=== PATIENT | female | born 1935 | race Caucasian/White ===

== ENCOUNTER 2017-02-10 03:48 | Emergency (ER) | payer OTHER, MEDICARE ==
[~2017-02-10] VITALS: Ht 152.4 cm; Wt 63.2 kg
[~2017-02-10 03:48] MED LIST: VICODIN 5-3001 EACH PO
[2017-02-10 04:24] LABS: EOSINOPHIL (%) 2.6 % (0-5); EOSINOPHIL COUNT 0.2 K/uL (0-0.3); HEMATOCRIT 39.8 % (36.0-46.0); IMMATURE GRANULOCYTE (%) 0.3 % (0.0-0.7); INSTRUMENT ABS NEUTROPHIL CT 4.9 K/uL; LYMPHOCYTE COUNT 1.5 K/uL (1.0-2.8); MCH 27.3 PG (29.0-34.0); MCHC 32.4 G/DL (30.0-36.0); MCV 84.1 FL (83-99); MEAN PLAT.VOLUME 10.1 uM^3 (9.5-12.4); MONOCYTE (%) 8.4 % (3-12); MONOCYTE COUNT 0.6 K/uL (0-0.8); NEUTROPHIL (%) 67.9 % (45-76); NEUTROPHIL COUNT 4.9 K/uL (1.8-6.4); PLATELET COUNT 249 K/uL (156-360); RBC DIS.WIDTH-CV 13.5 % (11.8-14.6); RBC DIS.WIDTH-SD 42.1 % (39-53); RED BLOOD COUNT 4.73 M/uL (3.80-5.20); WHITE BLOOD COUNT 7.2 K/uL (4.1-10.2)
[2017-02-10 04:31] LABS: ADD MIUA? NO; BILIRUBIN NEGATIVE; BLOOD NEGATIVE; COLOR STRAW ((YELLOW)); GLUCOSE (STRIP) NEGATIVE; KETONES NEGATIVE; LEUKOCYTES NEGATIVE; NITRITE NEGATIVE; PROTEIN (STRIP) NEGATIVE; SPECIFIC GRAVITY 1.009 (1.000-1.030); UCUL ADDED? NO; UROBILINOGEN 0.2 MG/DL (0.2-1.0)
[2017-02-10 04:38] LABS: CHLORIDE 110 mEq/L (99-109); POTASSIUM 4.1 mEq/L (3.7-5.4); SODIUM 145 mEq/L (136-147)
[2017-02-10 04:41] LABS: GLUCOSE 108 mg/dL (70-99)
[2017-02-10 04:42] LABS: ANION GAP 10 MEQ/L (2-14)
[2017-02-10 04:43] LABS: TOTAL BILIRUBIN 0.4 mg/dL (0.0-1.0)
[2017-02-10 04:44] LABS: ALKALINE PHOSPHATASE 58 IU/L (3-129)
[2017-02-10 04:45] LABS: GFR ESTIMATE (CALCULATED) > 59 mL/min/
[2017-02-10 04:46] LABS: DIRECT BILIRUBIN 0.2 mg/dL (0.0-0.3); UREA NITROGEN (BUN) 10 mg/dL (9-23)
[2017-02-10 04:48] LABS: LIPASE 7 U/L (1.0-51.0); TROP-I INTERPRETATION NEGATIVE; TROPONIN-I < 0.01 ng/mL (0.0-0.30)
[2017-02-10] MEDS ORDERED: VICODIN 5-3001 EACH PO (07:14)
[2017-02-10 07:36] VITALS: BP 157/90
== END 2017-02-10 07:44 | disposition home or self-care (01) ==
LOC: EME 03:48
PROVIDERS: Emergency Medicine
DX: N13.30 Unspecified hydronephrosis (principal); I10 Essential (primary) hypertension; E78.5 Hyperlipidemia, unspecified; M85.80 Other specified disorders of bone density and structure, unspecified site; Z96.0 Presence of urogenital implants
CPT/HCPCS: 71010; 74177; 80048; 80076; 81003; 83690; 84484; 85025; 93005; 99281; 99285; J7030

== ENCOUNTER → 2017-03-10 | Outpatient (CLI) | payer OTHER, MEDICARE | END | disposition home or self-care (01) | LOC: NUC 09:25 | DX: N13.2 Hydronephrosis with renal and ureteral calculous obstruction (principal) | CPT/HCPCS: 78709; A9562 ==